=== PATIENT | female | born 1985 | race African-American/Black ===

== ENCOUNTER 2017-02-02 05:55 | Inpatient (IN) ==
[2017-02-02 06:29] LABS: Apearance,Urine Slightly Hazy (Clear); Bacteria,Urine Occasional /HPF (Few); Bilirubin,Urine Negative (Negative); Blood, Urine Large mg/dL (Negative); Glucose,Urine (UA) Negative (Negative); Ketones,Urine Negative (Negative); Mucus,Urine Occasional /LPF (Occasional); Nitrite,Urine Negative (Negative); Protein,Urine Negative; RBC,Urine 2 /HPF (0-4); Squamous Epithelial Cell,Urine Occasional /HPF (0-10); Urine Color Yellow (Yellow); Urine Specific Gravity 1.013 (1.001-1.035); Urine Urobilinogen < 2.0 EU/DL (0.2-1.0); WBC,Urine 20 /HPF (0-6)
[2017-02-02] MEDS ORDERED: ONDANSETRON 4 MG/2 ML VIAL IV PRN ×2 (07:42→12:20)
[2017-02-02] MEDS ORDERED: BUTORPHANOL 2 MG/ML VIAL IV PRN (07:42)
[2017-02-02] MEDS ORDERED: PROMETHAZINE 25 MG/1 ML VIAL IM ONE (07:51)
[2017-02-02] MEDS ORDERED: FAMOTIDINE 20 MG/2 ML VIAL IV ONE (07:51)
[2017-02-02] MEDS ORDERED: ePHEDrine 50 MG/ML AMP IV PRN (07:51)
[2017-02-02] MEDS ORDERED: fentaNYL 2 MCG/ROPIV 0.2% EPID 150 ML EPIDURAL SCH (07:51)
[2017-02-02] MEDS ORDERED: hydrOXYzine HCL 25 MG/1 ML VIAL IM PRN (07:51)
[2017-02-02] MEDS ORDERED: CITRIC ACID/SODIUM CITRATE 30 ML UDCUP PO ONE (07:51)
[2017-02-02] MEDS ORDERED: diphenhydrAMINE 50 MG/1 ML VIAL IV PRN ×2 (07:51)
[2017-02-02] MEDS ORDERED: ONDANSETRON 4 MG/2 ML VIAL IV ONE (07:51)
[2017-02-02] MEDS: LACTATED RINGERS 1,000 ML IV SCH ×3 (08:00→09:38)
[2017-02-02 08:20] LABS: Basophils % 0.2 % (0.0-0.8); Eosinophils # 0.1 10*3/uL (0.0-0.87); Eosinophils % 0.6 % (0.00-10.9); Hematocrit 28.1 VOL% (35.7-47.0); Hemoglobin 8.8 GM/DL (12.0-16.0); Immature Granulocytes % 0.7 %; Immature Granulocytes Absolute 0.08 #; Lymphocytes # 2.7 10*3/uL (1.4-4.0); Lymphocytes % 24.2 % (21.3-54.2); Mean Corpuscular HGB Conc 31.3 GM/DL (32-36); Mean Corpuscular Hemoglobin 24 PG (27-34); Mean Platelet Volume 11.6 FL (9.6-12.0); Monocytes # 0.8 10*3/uL (0.11-0.8); Monocytes % 7.2 % (1.7-12.7); NRBC # 0.02 10*3/uL; Neutrophils # 7.4 10*3/uL (1.4-7.4); Neutrophils % 67.1 % (38.7-73.9); Platelet Count 238 T/CUMM (130-400); Red Blood Count 3.65 MC/CUMM (3.8-5.5); Red Cell Distribution Width 15.4 % (9.3-17.3)
[2017-02-02 10:44] LABS: Apearance,Urine Slightly Hazy (Clear); Bilirubin,Urine Negative (Negative); Blood, Urine Negative (Negative); Glucose,Urine (UA) Negative (Negative); Ketones,Urine 20 mg/dL (Negative); Mucus,Urine Occasional /LPF (Occasional); Nitrite,Urine Negative (Negative); Protein,Urine Negative; RBC,Urine 2 /HPF (0-4); Squamous Epithelial Cell,Urine Occasional /HPF (0-10); Urine Color Yellow (Yellow); Urine Specific Gravity 1.008 (1.001-1.035); Urine Urobilinogen < 2.0 EU/DL (0.2-1.0); WBC,Urine 2 /HPF (0-6)
[2017-02-02] MEDS ORDERED: OXYTOCIN/LR 20 UNIT/1,000 ML BAG IV ONE ×3 (11:46→15:12)
[2017-02-02] MEDS ORDERED: miSOPROStol 200 MCG TABLET ONE (11:46)
[2017-02-02] MEDS ORDERED: LIDOCAINE 1% 50 ML VIAL ONE (11:46)
[2017-02-02] MEDS ORDERED: WITCH HAZEL PADS 100/JAR TOP PRN (12:20)
[2017-02-02] MEDS ORDERED: BENZOCAINE 20%/MENTHOL 0.5% SPRAY 56 GM CAN TOP PRN (12:20)
[2017-02-02] MEDS ORDERED: HYDROCORTISONE 2.5% RECTAL CREAM 30 GM TUBE TOP PRN (12:20)
[2017-02-02] MEDS ORDERED: ACETAMINOPHEN 325 MG TABLET PO PRN (12:20)
[2017-02-02] MEDS ORDERED: oxyCODONE/ACETAMINOPHEN 5-325 MG TABLET PO PRN ×2 (12:20)
[2017-02-02] MEDS ORDERED: LANOLIN 50% CREAM 0.3 OZ TUBE TOP PRN (12:20)
[2017-02-02] MEDS ORDERED: RHO(D) IMMUNE GLOBULIN 300 MCG SYRINGE IM ONE (12:20)
[2017-02-02] MEDS ORDERED: BISACODYL 10 MG SUPP RECTAL PRN (12:20)
--- NOTE | 2017-02-02 12:25 | Operative Note ---
Date of procedure: 02/02/17 Pre-op diagnosis: at term with active labor Post-op diagnosis: same (Spontaneous vaginal delivery) Procedure: Spontaneous vaginal delivery Patient prepped and draped in the dorsolithotomy position and had delivered with expulsive efforts. Nasopharynx suctioned and shoulders delivered without difficulty. Nasopharynx suctioned with bulb syringe and amniotic fluid noted to be clear. Cord clamped and cut and transferred to the maternal abdomen. Cord blood studies obtained, the placenta spontaneously and delivered Brander's maneuver. Recovering well. Anesthesia: epidural Surgeon / Physician: Gerry Cuevas Estimated blood loss: other (200 cc) Specimens: other (Pathology) Condition: stable Disposition: floor Results - Labs CBC & BMP: 02/02/17 08:02 Discharge Plan - Discharge Medications No Action Multivitamin () [ Vitamin] 1 tablet PO DAILY - Follow Up or Referral - Forms/Instructions
[2017-02-02] MEDS ORDERED: DIPH/TET/ACEL PERT BOOSTER VACCINE 0.5 ML VIAL IM ONE (12:30)
[2017-02-02] MEDS ORDERED: MEASLES/MUMPS/RUBELLA VACCINE 0.5 ML VIAL SUBCUT ONE (12:30)
[2017-02-02] MEDS: IBUPROFEN 800 MG TABLET PO PRN (13:03)
[2017-02-02] MEDS: DOCUSATE SODIUM 100 MG CAPSULE PO SCH (21:42)
[2017-02-02] MEDS: FERROUS SULFATE 325 MG TABLET PO SCH (21:42)
[2017-02-03 07:22] LABS: Basophils % 0.1 % (0.0-0.8); Eosinophils # 0.1 10*3/uL (0.0-0.87); Eosinophils % 0.6 % (0.00-10.9); Hematocrit 27.8 VOL% (35.7-47.0); Hemoglobin 8.7 GM/DL (12.0-16.0); Immature Granulocytes % 0.7 %; Immature Granulocytes Absolute 0.11 #; Mean Corpuscular HGB Conc 31.3 GM/DL (32-36); Mean Corpuscular Hemoglobin 24 PG (27-34); Mean Corpuscular Volume 77.9 FL (87-102); Mean Platelet Volume 12.7 FL (9.6-12.0); Monocytes # 0.9 10*3/uL (0.11-0.8); Monocytes % 5.9 % (1.7-12.7); NRBC # 0.03 10*3/uL; Neutrophils # 11.7 10*3/uL (1.4-7.4); Neutrophils % 73.7 % (38.7-73.9); Platelet Count 211 T/CUMM (130-400); Red Blood Count 3.57 MC/CUMM (3.8-5.5); Red Cell Distribution Width 15.5 % (9.3-17.3); White Blood Count 15.9 T/CUMM (4-12)
[2017-02-03 07:49] LABS: Platelet Estimate Normal
[2017-02-03] MEDS: FERROUS SULFATE 325 MG TABLET PO SCH ×2 (09:45→21:46)
[2017-02-03] MEDS: DOCUSATE SODIUM 100 MG CAPSULE PO SCH ×2 (09:45→21:46)
--- NOTE | 2017-02-03 11:03 | OB/GYN History & Physical ---
History of Present Illness History of present illness: Ms. Hanks is a 31 year old female Pt. 31y/o JADEN 02/10/2017 @ 38+6 wks presents to labor and delivery with complaints of contractions since 02/01 @ 10pm. Pt. denies vaginal bleeding, leakage of fluid or decreased movement. care with Dr. Norman and per pt is uncomplicated. Home Medications Medication Instructions Recorded Confirmed Type Multivitamin () [ 1 tablet PO DAILY 07/08/16 02/02/17 History Vitamin] Allergies Allergy/AdvReac Type Severity Reaction Status Date / Time iodine Allergy Severe Swelling Verified 02/02/17 06:05 of Lip/Tongue/Throat Shrimp Allergy Severe Swelling Verified 02/02/17 06:05 of Lip/Tongue/Throat 12 point system: reviewed and no additional remarkable complaints except as stated Medical,Surgical,& Family Hx - Medical History Psychological: History of: Depression Neurology: History of: Migraine No history of: Seizures HEENT: No history of: Ear Problem, Eye Problem, Dental Problems, Glaucoma, Oral Cancer, HEENT Problems Gastrointestinal: Comment Only: GI Problems (acid reflux) Hematology: History of: Anemia Reproductive: History of: Complication (2 miscarriage) - Surgical History Abdominal Surgeries: Patient denies: Abdominal Surgery Reproductive Surgeries: Surgical HX of;: Dilation and Curettage (06/29/15) Comment Only: Breast Surgery (left breast) Orthopedic Surgeries: Surgical HX of;: Orthopedic Surgery (left leg joel) - Family History Family History: Denies;: Family Anesthesia Reaction, Family Cancer, Family Diabetes, Family Heart Disease, Family Hypertension, Family Psychiatric Problems, Family Stroke - Social History Smoking Status: Never smoker Frequency of Alcohol Use: None Type of Drug Use: None Exam [employer] - Constitutional Vitals: Vital Signs Temp Pulse Resp BP Pulse Ox 02/03/17 10:00 20 02/03/17 08:00 97.8 F 77 20 103/63 96 02/03/17 04:00 97.8 F 82 18 103/59 96 02/03/17 02:00 18 02/03/17 00:00 97.9 F 85 18 106/59 99 02/02/17 20:00 97.2 F L 82 18 124/76 95 02/02/17 17:00 72 18 126/72 97 02/02/17 16:00 96.7 F L 62 18 99/67 98 02/02/17 12:00 97.8 F 71 20 100/60 100 General appearance: mild distress - Antepartum / Post Antepartum Exam Cervix -Dilatation: /-2 by Nurse Bales - Respiratory Respiratory exam: Present: clear to auscultation bilaterally - Cardiovascular Cardiovascular exam: Present: regular rate and rhythm - GI/Abdominal GI/Abdominal exam: Present: normal bowel sounds - Extremities Exam Extremities exam: Present: normal inspection - Neurological Exam Neurological exam: Present: alert, oriented X3 - Skin Skin exam: Present: normal color Assessment and Plan (1) Active labor at term Status: Acute Assessment and plan: 1. admit to labor and delivery 2. anesthesia consult 3.cont. external monitoring 4. ivf 5. anticipate delivery Current Visit: Yes Results - Labs CBC & BMP: 02/03/17 06:02 Quality Measures - VTE Contraindication to Pharmacological VTE Prophylaxis: Clinical assessment deems Pt at low risk, no prophalaxis needed
--- NOTE | 2017-02-03 11:09 | OB/GYN Progress Note ---
Assessment and Plan (1) Active labor at term Status: Acute Assessment and plan: 1. admit to labor and delivery 2. anesthesia consult 3.cont. external monitoring 4. ivf 5. anticipate delivery Current Visit: Yes (2) Status: Acute Assessment and plan: 1. cont. current management 2. discharge to home in am pending vitals stable Current Visit: Yes [employer] - PN: Subj Interval history: Pt. seen by bedside, denies any complaints. Mood is good. Normal lochia. Exam [employer] - Constitutional Vitals: Vital Signs Temp Pulse Resp BP Pulse Ox 02/03/17 10:00 20 02/03/17 08:00 97.8 F 77 20 103/63 96 02/03/17 04:00 97.8 F 82 18 103/59 96 02/03/17 02:00 18 02/03/17 00:00 97.9 F 85 18 106/59 99 02/02/17 20:00 97.2 F L 82 18 124/76 95 02/02/17 17:00 72 18 126/72 97 02/02/17 16:00 96.7 F L 62 18 99/67 98 02/02/17 12:00 97.8 F 71 20 100/60 100 General appearance: no acute distress - Respiratory Respiratory exam: Present: clear to auscultation bilaterally - Cardiovascular Cardiovascular exam: Present: regular rate and rhythm - GI/Abdominal GI/Abdominal exam: Present: normal bowel sounds - Extremities Exam Extremities exam: Present: normal inspection - Neurological Exam Neurological exam: Present: alert, oriented X3 - Psychiatric Psychiatric exam: Present: normal affect, normal mood - Skin Skin exam: Present: normal color Results - Labs CBC & BMP: 02/03/17 06:02
--- NOTE | 2017-02-03 11:50 | Anesthesia Post-Op ---
Anesthesia Post OP - Post Ansesthetic Evaluation Patient seen in post op: Yes Resp: within normal limits CV: within normal limits Mental: within normal limits Temp: within normal limits [id number]: within normal limits Nausea and Vomiting: within normal limits Pain: within normal limits
[2017-02-03] MEDS: IBUPROFEN 800 MG TABLET PO PRN (17:20)
[2017-02-04 08:18] VITALS: BP 112/75
[2017-02-04] MEDS: FERROUS SULFATE 325 MG TABLET PO SCH (09:15)
[2017-02-04] MEDS: DOCUSATE SODIUM 100 MG CAPSULE PO SCH (09:15)
== END 2017-02-04 11:42 | disposition home or self-care (01) | DRG 560 ==
LOC: N.LDOUT 05:55 → N.LD 06:01 → N.OB 16:00
PROVIDERS: ADMIT Obstetrics & Gynecology; ATTEND Obstetrics & Gynecology